=== PATIENT | female | born 1960 | race Caucasian/White ===

== ENCOUNTER 2016-12-17 13:05 | Emergency (ER) | payer MEDICAID, OTHER ==
[~2016-12-17] VITALS: Wt 87.0 kg
[~2016-12-17 13:05] MED LIST: ABILIFY; ACET500T98 PO; BUPR-34 PO; CEPH500C PO; COGENTIN; PROPANOLOL; SULF1TAB23 PO; TRAM50TA2 PO
[2016-12-17] MEDS ORDERED: ONDANSETRON 4 MG INJ IV STA (16:46)
[2016-12-17] MEDS ORDERED: morphine 4 MG/ML VIAL IV STA (16:46)
[2016-12-17] MEDS ORDERED: SOD CHLORIDE 0.9% 1,000 ML IV ONE (16:46)
[2016-12-17 16:57] LABS: ADD SCAN DIFF NO
[2016-12-17] MEDS ORDERED: OXYB5TAB7 PO (17:00)
[2016-12-17] MEDS ORDERED: ARIP20TA7 PO (17:00)
[2016-12-17 17:01] LABS: ABNORMAL IP MESSAGE 1; HEMATOCRIT 38.1 % (37.0-47.0); HEMOGLOBIN 12.5 g/dl (12.0-16.0); MEAN CORPUSCULAR HEMOGLOBIN 29.7 pg (29.0-33.0); MEAN CORPUSCULAR HGB CONC 32.8 g/dl (32.0-37.0); MEAN CORPUSCULAR VOLUME 90.5 fl (82.0-101.0); MEAN PLATELET VOLUME 8.8 fl (7.4-10.4); PLATELET COUNT 286 10^3/UL (140-415); RED BLOOD COUNT 4.21 10^6/ul (4.20-5.40); RED CELL DISTRIBUTION WIDTH 13.7 % (11.5-14.5); WHITE BLOOD COUNT 9.4 10^3/ul (4.8-10.8)
[2016-12-17] MEDS ORDERED: MELO-110 PO (17:01)
[2016-12-17 17:08] LABS: ADD UMIC YES; URINE BILIRUBIN (Dip) NEGATIVE (NEGATIVE); URINE BLOOD (Dip) 3+ (NEGATIVE); URINE GLUCOSE (Dip) NEGATIVE (NEGATIVE); URINE KETONES (Dip) NEGATIVE (NEGATIVE); URINE LEUKOCYTE ESTERASE (Dip) 1+ (NEGATIVE); URINE NITRITE (Dip) NEGATIVE (NEGATIVE); URINE TOTAL PROTEIN (Dip) TRACE (NEGATIVE); URINE UROBILINOGEN (Dip) 0.2 E.U./dL (0.1-1.0)
[2016-12-17 17:26] LABS: ALBUMIN 4.6 g/dl (3.3-4.9); CHLORIDE 102 mmol/L (97-110)
[2016-12-17 17:27] LABS: POTASSIUM 3.6 mmol/L (3.5-5.1); SODIUM 139 mmol/L (135-144)
[2016-12-17 17:29] LABS: ALBUMIN/GLOBULIN RATIO 1.39; ALKALINE PHOSPHATASE 116 IU/L (42-121); ASPARTATE AMINO TRANSFERASE 25 IU/L (15-46); BILIRUBIN,INDIRECT 2.1 mg/dl (0-1.1); BILIRUBIN,TOTAL 2.1 mg/dl (0.2-1.3); BLOOD UREA NITROGEN 16 mg/dl (7-20); CARBON DIOXIDE 26 mmol/L (21-31); TOTAL PROTEIN 7.9 g/dl (6.1-8.1)
[2016-12-17 17:30] LABS: ALANINE AMINOTRANSFERASE 40 IU/L (13-69); ANION GAP 15 (8-16); CALCIUM 9.1 mg/dl (8.4-10.2); GLUCOSE 106 mg/dl (70-220)
[2016-12-17 17:45] LABS: TROPONIN-I < 0.012 ng/ml (0.00-0.12)
[2016-12-17 17:54] LABS: URINE COLOR YELLOW (YELLOW)
[2016-12-17 17:58] LABS: BACTERIA,URINE MODERATE; SQUAMOUS EPITHELIAL CELL,UR MODERATE; URINE RBCS >50 /HPF (0)
--- NOTE | 2016-12-17 17:58 | RADRPT ---
PROCEDURE: XR Chest. CLINICAL INDICATION: Chest pain, abdominal pain TECHNIQUE: Single frontal view of the chest. COMPARISON: No priorchest radiograph. FINDINGS: The lungs are clear. No pleural effusion or pneumothorax. The cardiomediastinal silhouette is unremarkable. Mild multilevel thoracic spondylosis is present. No evidence of free air under the diaphragms. IMPRESSION: No acute air space infiltrates. RPTAT: AADD .Maury Perez MD, MD Date Time Electronically viewed and signed by .Maury Perez MD, on 12/17/2016 17:58 .B/
[2016-12-17 18:30] VITALS: BP 139/79; PULSE 88; RESP 16; TEMP 98.1
[2016-12-17] MEDS ORDERED: CEFTRIAXONE 1 GM/50 ML (PMX) 50 ML IVPB ONE (18:30)
--- NOTE | 2016-12-17 18:33 | RADRPT ---
PROCEDURE: Right Upper Quadrant Ultrasound. CLINICAL INDICATION: Abdominal Pain TECHNIQUE: Multiple real-time images were acquired of the patient's right upper quadrant abdomen a nd retroperitoneum utilizing a high resolution transducer. COMPARISON: None FINDINGS: The liver measures 14.1 cm, and demonstrates mildly coarsened echotexture. The main portal vein is p atent with proper directional flow. There is no intrahepatic biliary ductal dilatation. The extrahep atic common bile duct measures 4 mm. There is cholelithiasis. There is no gallbladder wall thickening or pericholecystic fluid. The visualized pancreas is unremarkable. The right kidney measures 10.1 x 3.8 x 4.1 cm and demonstrates normal echotexture. There is no right renal calculus or hydronephrosis. The visualized abdominal aorta and IVC are grossly unremarkable. IMPRESSION: Mildly coarsened hepatic echotexture is nonspecific and can be seen with early chronic liver disease and / or mild fatty infiltration. No definite morphologic changes of cirrhosis are identified. Cholelithiasis without evidence of acute cholecystitis. Normal CBD. RPTAT: EE Physician Alma Date Time Electronically viewed and signed by Physician Alma on 12/17/2016 18:33 /
--- NOTE | 2016-12-17 19:04 | ERD ---
ER Documentation Chief Complaint Date/Time DATE: 12/17/16 TIME: 19:01 Chief Complaint abd pain nausea vomiting and diarrhea for the past few days. HPI 56-year-old female with no significant medical history presenting to the ER with complaints of nausea and vomiting since this morning. She had one episode of loose stools that were nonbloody. Her vomitus is non-bloody and nonbilious. No associated fevers or chills. She complains of associated mild epigastric pain that is nonradiating, 6 out of 10, aching. Nothing seems to make it better or worse. She was seen by her clinic today and they referred her to the ER for further evaluation. She denies any dysuria or hematuria but was prescribed Macrobid for UTI yesterday that she has not filled. ROS All systems reviewed and are negative except as per history of present illness. Medications Home Meds Reported Medications Meloxicam* (Mobic*) 15 Mg Tablet, 15 MG PO DAILY, #30 TAB 12/17/16 Oxybutynin Chloride* (Ditropan*) 5 Mg Tab, 5 MG PO TID, TAB 12/17/16 Aripiprazole* (Abilify*) 20 Mg Tablet, 20 MG PO DAILY, #30 TAB 12/17/16 Bupropion Hcl* (Wellbutrin SR*) 150 Mg Tablet.sa, 150 MG PO DAILY 04/05/11 Discontinued Reported Medications Trimethoprim/Sulfamethoxazole* (Bactrim* SS) 1 Tab Tab, 1 TAB PO BID 04/06/11 Cephalexin* (Cephalexin*) 500 Mg Capsule, 500 MG PO QID 04/06/11 [Cogentin] No Conflict Check 04/05/11 [Propanolol] No Conflict Check 04/05/11 [Abilify] No Conflict Check 04/05/11 Acetaminophen (Tylenol) 500 Mg Tab, 500 MG PO PRN 04/05/11 Tramadol HCl (Tramadol HCl) 50 Mg Tablet, 50 MG PO 6HRS PRN 04/05/11 Allergies Allergies: Coded Allergies: codeine (Verified Adverse Reaction, Mild, VOMITING, 12/17/16) PMhx/Soc History of Surgery: No Anesthesia Reaction: No Hx Neurological Disorder: No Hx Respiratory Disorders: No Hx Cardiac Disorders: No Hx Psychiatric Problems: Yes (depression, schizophrenia , 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) Hx Miscellaneous Medical Probl: No Hx Alcohol Use: No Hx Substance Use: No Hx Tobacco Use: No Smoking Status: Never smoker FmHx Family History: No diabetes Physical Exam Vitals Vital Signs Date Time Temp Pulse Resp B/P Pulse Ox O2 Delivery O2 Flow Rate FiO2 12/17/16 18:30 98.1 88 16 139/79 100 Room Air 12/17/16 17:40 98.7 78 18 129/70 100 Room Air 12/17/16 16:56 87 17 173/75 100 Room Air 12/17/16 13:11 98.6 78 20 174/89 99 Physical Exam Const: Well-appearing, no distress Head: Atraumatic Eyes: Normal Conjunctiva, no scleral icterus, PERRLA, EOMI ENT: Dry oral mucosa Neck: Full range of motion. No meningismus. Resp: Clear to auscultation bilaterally Cardio: Regular rate and rhythm, no murmurs Abd: Soft, minimal epigastric tenderness to palpation, no rebound or guarding , non distended. Normal bowel sounds Skin: No petechiae or rashes Back: No midline or flank tenderness Ext: No cyanosis, or edema Neur: Awake and alert Psych: Normal Mood and Affect Result Diagram: 12/17/16 1640 12/17/16 1640 Results 24 hrs Laboratory Tests Test 12/17/16 16:40 White Blood Count 9.410^3/ul Red Blood Count 4.2110^6/ul Hemoglobin 12.5g/dl Hematocrit 38.1% Mean Corpuscular Volume 90.5fl Mean Corpuscular Hemoglobin 29.7pg Mean Corpuscular Hemoglobin Concent 32.8g/dl Red Cell Distribution Width 13.7% Platelet Count 18728^3/UL Mean Platelet Volume 8.8fl Urine Color YELLOW Urine Clarity SLIGHTLY CLOUDY Urine pH 5.5 Urine Specific [place] >=1.030 Urine Ketones NEGATIVE Urine Nitrite NEGATIVE Urine Bilirubin NEGATIVE Urine Urobilinogen 0.2 E.U./dL Urine Leukocyte Esterase 1+ Urine Microscopic RBC >50/HPF Urine Microscopic WBC 10-25/HPF Urine Squamous Epithelial Cells MODERATE Urine Bacteria MODERATE Urine Hemoglobin 3+ Urine Glucose NEGATIVE% Urine Total Protein TRACE Sodium Level 139mmol/L Potassium Level 3.6mmol/L Chloride Level 102mmol/L Carbon Dioxide Level 26mmol/L Anion Gap 15 Blood Urea Nitrogen 16mg/dl Creatinine 0.80mg/dl Glucose Level 106mg/dl Calcium Level 9.1mg/dl Total Bilirubin 2.1mg/dl Direct Bilirubin 0.00mg/dl Indirect Bilirubin 2.1mg/dl Aspartate Amino Transf (AST/SGOT) 25IU/L Alanine Aminotransferase (ALT/SGPT) 40IU/L Alkaline Phosphatase 116IU/L Troponin I < 0.012ng/ml Total Protein 7.9g/dl Albumin 4.6g/dl Globulin 3.30g/dl Albumin/Globulin Ratio 1.39 Lipase 26U/L Current Medications Medications (Trade) Dose Ordered Sig/Lizandro Route PRN Reason Start Time Stop Time Status Last Admin Dose Admin Morphine Sulfate (morphine) 4 mg ONCE STAT IV 12/17/16 16:46 12/17/16 16:49 DC 12/17/16 17:24 Ondansetron HCl 4 mg 4 mg ONCE STAT IV 12/17/16 16:46 12/17/16 16:49 DC 12/17/16 17:24 Sodium Chloride 1,000 ml @ 1,000 mls/hr Q1H ONCE IV 12/17/16 16:46 12/17/16 17:45 DC 12/17/16 17:24 Ceftriaxone Sodium (Rocephin) 50 ml @ 100 mls/hr ONCE ONCE IVPB 12/17/16 18:30 12/17/16 18:59 DC 12/17/16 18:47 Procedures/MDM EKG: Rate/Rhythm: Normal Sinus Rhythm QRS, ST, T-waves: No changes consistent w/ acute ischemia Impression: No evidence of ischemia or arrhythmia Chest x-ray: No acute abnormalities Ultrasound gallbladder: No acute findings Labs: CBC and CMP are unremarkable Troponin negative Urinalysis shows evidence of possible UTI MDM: Patient is presenting with epigastric pain with nausea, vomiting, and loose stools. She is afebrile with stable vitals. Her abdominal exam is not concerning for an acute surgical abdomen. Given her elevation in her bilirubin of 2.1, abdominal ultrasound was ordered to evaluate for choledocholithiasis and did not show any evidence of cholecystitis or common bile duct dilation. She does have some chronic hepatic changes but nothing acute. IV fluids and anti-emetics were given with significant improvement of her symptoms. At this time, I suspect she most likely has some type of gastritis versus gastroenteritis versus vomiting secondary to UTI. I encouraged the patient to fill the Macrobid that she was prescribed. The dose of Rocephin was given here. I will discharge her with Zofran as well. Return precautions were discussed at length. Departure Diagnosis: Primary Impression: Abdominal pain Abdominal location: epigastric Qualified Code: R10.13 - Epigastric pain Additional Impressions: Nausea, vomiting, and diarrhea UTI (urinary tract infection) Urinary tract infection type: acute cystitis Hematuria presence: with hematuria Qualified Code: N30.01 - Acute cystitis with hematuria Condition: Stable EKDIPIKA BURKETT MD December 17, 2016 19:04
[2016-12-17 19:19] LABS: LYMPHOCYTES # 0.4 10^3/ul (0.8-2.9); MONOCYTE # 0.4 10^3/ul (0.3-0.9); NEUTROPHIL # 8.4 10^3/ul (1.6-7.5)
[2016-12-17] MEDS ORDERED: ONDA4TAB14 PO (19:36)
== END 2016-12-17 19:42 | disposition home or self-care (01) ==
LOC: E/R 13:05
DX: R10.13 Epigastric pain (principal); R11.2 Nausea with vomiting, unspecified; R19.7 Diarrhea, unspecified; N30.01 Acute cystitis with hematuria
CPT/HCPCS: 36415; 71010; 76705; 80053; 81001; 81003; 83690; 84484; 85025; 87086; 96374; 96375; J0696; J7030; Z7502